=== PATIENT | male | born 1970 | race Caucasian/White ===

== ENCOUNTER 2017-04-09 05:35 | Day surgery (SDC) | payer MEDICAID, OTHER ==
[~2017-04-09] VITALS: Ht 167.6 cm; Wt 86.3 kg
[2017-04-09] MEDS ORDERED: LACTATED RINGER'S 1,000 ML IV SCH (06:00)
[2017-04-09] MEDS ORDERED: MOXIFLOXACIN 0.5% 3 ML OPH OPER SCH (06:00)
[2017-04-09] MEDS ORDERED: PHENYLephrine 10% 5 ML OPH OPER SCH (06:00)
[2017-04-09] MEDS ORDERED: LIDOCAINE 3.5% GEL TUBE OPER ONE (06:00)
[2017-04-09] MEDS ORDERED: CYCLOPENTOLATE 2% 2 ML OPH OPER SCH (06:00)
[2017-04-09] MEDS ORDERED: TETRACAINE 0.5% 4 ML OPH OPER SCH (06:00)
[2017-04-09] MEDS ORDERED: TROPICAMIDE 1% 2 ML OPH OPER SCH (06:00)
[2017-04-09] MEDS ORDERED: DICLOFENAC 0.1% 2.5 ML OPH OPER SCH (06:00)
[2017-04-09 06:28] VITALS: BP 116/75; PULSE 69; RESP 20
[2017-04-09] MEDS ORDERED: LIDOCAINE 2%/EPI 30 ML INJ ONE (06:28)
[2017-04-09] MEDS ORDERED: NA HYALURONATE/CHONDROITIN 0.5 ML SYG ONE (06:29)
[2017-04-09] MEDS ORDERED: TOBRAMYCIN 0.3% 3.5 GM OPH OINT ONE (06:29)
[2017-04-09] MEDS ORDERED: BALANCED SALT SOLN 500 ML OPH IRRIG ONE (06:29)
[2017-04-09] MEDS ORDERED: EPINEPHrine 1 MG INJ ONE (06:29)
[2017-04-09 06:31] VITALS: Ht 167.6 cm; Wt 86.3 kg
[2017-04-09] MEDS ORDERED: CARBACHOL 0.01% 1.5 ML OPH INJ ONE (06:49)
[2017-04-09] MEDS ORDERED: CEFAZOLIN 1 GM INJ ONE ×2 (06:50→07:00)
[2017-04-09] MEDS ORDERED: PROPOFOL 200 MG INJ ONE (07:00)
[2017-04-09] MEDS ORDERED: LIDOCAINE 2%/EPI MPF (SDV) 20 ML VIAL INJ ONE (07:06)
[2017-04-09] MEDS ORDERED: HYALURONATE/CHONDROITIN 1ML OPH INJ IO ONE (07:19)
[2017-04-09] MEDS ORDERED: NA HYALURONATE/CHONDROITIN 0.5 ML SYG RIGHT EYE ONE (07:19)
--- NOTE | 2017-04-09 07:29 | HPN ---
Date/Time of Note Date/Time of Note DATE: 04/09/17 TIME: 07:29 Interval H&P Admission Note Pt. seen H&P reviewed: No system changes DEAN REYNOSO D.O. Apr 09, 2017 07:29
[2017-04-09] MEDS ORDERED: TRYPAN BLUE 0.5 ML SYG IO ONE (08:09)
[2017-04-09] MEDS ORDERED: CARBACHOL 0.01% 1.5 ML OPH INJ IO ONE (08:28)
[2017-04-09 08:39] VITALS: BP 113/69; PULSE 65; RESP 14
[2017-04-09 08:44] VITALS: BP 115/70; PULSE 62; RESP 14
[2017-04-09 08:49] VITALS: BP 118/74; PULSE 60; RESP 14
[2017-04-09 08:54] VITALS: BP 116/73; PULSE 64; RESP 14
[2017-04-09 09:05] VITALS: BP 116/75; PULSE 63; RESP 20
--- NOTE | 2017-04-14 06:32 | OPR ---
DATE OF OPERATION: 04/09/2017 PREOPERATIVE DIAGNOSIS: Posterior subcapsular cataract, right eye. POSTOPERATIVE DIAGNOSIS: Posterior subcapsular cataract, right eye. PROCEDURE PLANNED: Cataract extraction via phacoemulsification and intraocular lens implantation, Rt.eye. PROCEDURE PERFORMED: Cataract extraction via phacoemulsification and intraocular lens implantation, Rt.eye. CONSENT: The patient was given all possible options for treatment of this condition. As well, the patient was explained all possible most common complications which include but not limited to infection, bleeding, dropped fragment of cataract, rupture of capsular bag, vitreous prolapse, dislocation of intraocular lens, loss of vision, loss of the eye as an organ. The patient understood, consent signed and can be found in his chart. OPERATIVE PROCEDURE: The patient was brought to the operating room in stable condition, placed in supine position and prepped for cataract surgery in routine sterile technique. Then limbal incision was performed with keratome which was followed by injection of lidocaine with epinephrine preservative free. It was followed by injection of Viscoat and air bubble. Then Trypan blue dye was injected to stain the anterior capsule. After that tripan blue dye was removed via irrigation and aspiration with balanced salt solution. Then capsulorrhexis was done with cystitome and Utrata forceps. " Argentinian flag" type tear on the posterior capsular bag noticed.Additional Viscoat agent was instilled. Wannace scissors used to stop capsulae run. Eventually, Utrata forceps were used to remove the anterior capsule. Hydrodissection was performed with balanced salt solution. Nucleus removed. Then paracentesis was done with Super Sharp blade and a second Nagahara instrument was inserted into the anterior chamber as well as the phaco tip. Then horizontal chopping technique used to divide the nucleus in multiple pieces. Each of them as emulsified successfully. Some instability of the posterior capsular bag was noticed. Therefore, a limited anterior vitrectomy was done. DisCoVisc was injected into the posterior capsule. Eventually, Varinder SN- 60WF intraocular lens was inserted and centered. After insertion of the intraocular lens, irrigation and aspiration with balance salt solution was done and air was injected into anterior chamber. Miochol was injected. Anterior chamber was stable, the lens was centered, and a 10-0 nylon single suture was placed over the incision. Tobradex ointment was instilled. A patch was placed over closed eyelid. The patient was transferred to recovery room in stable conditions. Dictated By: Shruti Perez DO /[email or web address]/flex /Document#: [id number] RUPAL
== END 2017-04-09 09:28 | disposition home or self-care (01) ==
LOC: SDS 05:35
PROVIDERS: ATTEND Ophthalmology
DX: H25.041 Posterior subcapsular polar age-related cataract, right eye (principal)
CPT/HCPCS: 66984; J0171; J0690; V2632; Z7512; Z7610

== ENCOUNTER 2017-06-04 08:45 | Day surgery (SDC) | payer OTHER ==
[2017-06-03 09:54] VITALS: BMI 30.2
[~2017-06-04] VITALS: Ht 167.6 cm; Wt 85.5 kg
[2017-06-04] VITALS (8 sets, daily range): BP systolic 108–131; BP diastolic 68–77; PULSE 52–65; RESP 16–21; Ht 167.6 cm; Wt 85.5 kg
[~2017-06-04 08:45] MED LIST: BALANCED SALT SOLN 15 ML OPH IRRIG ONE; CYCLOPENTOLATE 2% 2 ML OPH OPER SCH; DICLOFENAC 0.1% 2.5 ML OPH OPER SCH; LACTATED RINGER'S 1,000 ML IV SCH; LIDOCAINE 2%/EPI 30 ML INJ ONE; MOXIFLOXACIN 0.5% 3 ML OPH OPER SCH; PHENYLephrine 10% 5 ML OPH OPER SCH; TETRACAINE 0.5% 4 ML OPH OPER SCH; TOBRAMYCIN/DEXAMETH 3.5 GM OPH OINT ONE; TROPICAMIDE 1% 3ML OPH OPER SCH
[2017-06-04] MEDS ORDERED: LIDOCAINE 3.5% GEL TUBE OPER ONE (10:00)
--- NOTE | 2017-06-04 10:13 | HPN ---
Date/Time of Note Date/Time of Note DATE: 06/04/17 TIME: 10:13 Interval H&P Admission Note Pt. seen H&P reviewed: No system changes DEAN REYNOSO D.O. Jun 04, 2017 10:13
[2017-06-04] MEDS ORDERED: LIDOCAINE 2%/EPI 30 ML INJ ONE (10:15)
[2017-06-04] MEDS ORDERED: TOBRAMYCIN 0.3% 3.5 GM OPH OINT ONE (10:15)
[2017-06-04] MEDS ORDERED: NA HYALURONATE/CHONDROITIN 0.5 ML SYG ONE (10:16)
[2017-06-04] MEDS ORDERED: EPINEPHrine 1 MG INJ ONE (10:16)
[2017-06-04] MEDS ORDERED: CARBACHOL 0.01% 1.5 ML OPH INJ ONE ×2 (10:16→11:22)
[2017-06-04] MEDS ORDERED: TOBRAMYCIN/DEXAMETH 3.5 GM OPH OINT OPER ONE (10:25)
[2017-06-04] MEDS ORDERED: MIDAZOLAM 1 MG/ML 2 ML INJ ONE (10:25)
[2017-06-04] MEDS ORDERED: CARBACHOL 0.01% 1.5 ML OPH INJ IO ONE ×2 (10:25→11:39)
[2017-06-04] MEDS ORDERED: NA HYALURONATE/CHONDROITIN 0.5 ML SYG LEFT EYE ONE (10:25)
[2017-06-04] MEDS ORDERED: LIDOCAINE 2%/EPI MPF (SDV) 20 ML VIAL INJ ONE (10:25)
[2017-06-04] MEDS ORDERED: CEFAZOLIN 1 GM INJ ONE (10:27)
[2017-06-04] MEDS ORDERED: TRYPAN BLUE 0.5 ML SYG IO ONE (10:53)
[2017-06-04] MEDS ORDERED: HYDROmorphONE (0.2 MG/ML) 10ML SYG IV PRN ×3 (11:00)
[2017-06-04] MEDS ORDERED: OXYCODONE/ACETAMINOPHEN (5/325) TAB PO PRN ×2 (11:00)
[2017-06-04] MEDS ORDERED: ONDANSETRON 4 MG INJ IV PRN (11:00)
[2017-06-04] MEDS ORDERED: PROPOFOL 20 ML ONE (11:36)
--- NOTE | 2017-06-04 11:57 | SIPON ---
Date/Time of Note Date/Time of Note DATE: 06/04/17 TIME: 11:53 Operative Report Preoperative Diagnosis Senile cataract ,Lt. eye Postoperative Diagnosis Senile cataract, Lt eye Operation/Procedure Performed Extracapsular cataract extraction with IOL implantation, Lt eye Anesthesia Type: MAC Estimated Blood Loss: none Transfusion Required: no Specimen: none Grafts/Implants Bausch and Lomb model L122UV AC +20.50 Complications: no DEAN REYNOSO D.O. Jun 04, 2017 11:57
--- NOTE | 2017-06-05 07:45 | OPR ---
DATE OF OPERATION: 06/04/2017 SURGEON: Shruti Perez DO. ANESTHESIOLOGIST: . PREOPERATIVE DIAGNOSIS: Senile cataract, left eye. POSTOPERATIVE DIAGNOSIS: Senile cataract, left eye. OPERATION PERFORMED: Cataract extraction via phacoemulsification and intraocular lens implantation, left eye. CONSENT: Patient was given all detailed information regarding the possible outcome of surgery and most common complications including, but not limited to, bleeding, infection, loss of the lens, rupture of the bag, loss of fragment of the lens, retinal detachment, loss of vision, loss of the eye, were explained and understood and signed consent. OPERATIVE PROCEDURE: Patient brought to the operating room in stable condition, placed in the supine position on operating table and his left eye was prepped in routine sterile technique for cataract surgery. Retractor was placed in his left eye and a clear corneal limbal incision was done with a keratome. It was followed by injection of lidocaine and epinephrine preservative free, and a Viscoat agent. Then Trypan blue dye was injected and removed with irrigation-aspiration with balance salt solution. Additional Viscoat was injected and a capsulorrhexis was started, but immediately when cystotome touched on the capsule, there was a big opening so called Argentinian sign tear occurred. So additional DisCoVisc agent was injected and I changed the technique of cataract extraction . The entrance incision was enlarged and a glide was inserted to keep nucleus in anterior chamber.Nucleus was removed manually with Nagahara chopper and loop. Then cortex was removed via irrigation and aspiration with ballanced salt solution. Then the anterior chamber lens, Bausch and Lomb, model L122UV, diopter +20.5 was inserted in the anterior chamber. Patient was moving his eye all the time and when I asking if he is doing okay, he said he was "okay," but at the end of procedure, we found out this patient was in pain, that is why his eye was moving, which made the surgery very difficult to do, but eventually a 10-0 nylon suture was placed on the wound, an interrupted suture, and Viscoat and DisCoVisc agent were removed with irrigation-aspiration and an air bubble was injected in the anterior chamber for corneal endothelium protection. The patient was given additional anesthesia during placement of the suture, but we found out later he was suffering from pain all the time, but did not say anything about it. Eventually, Tobradex ointment was injected into conjunctival sac and a patch was placed over closed eyelids. Patient transferred to surgery recovery room in stable condition. Dictated By: Shruti Perez DO /[email or web address] /Document#: [id number] RUPAL
== END 2017-06-04 13:10 | disposition home or self-care (01) ==
LOC: SDS 08:45
PROVIDERS: ATTEND Ophthalmology
DX: H25.11 Age-related nuclear cataract, right eye (principal)
CPT/HCPCS: 66984; J0171; J0690; J2250; V2630; Z7512; Z7610